=== PATIENT | male | born 1970 | race Caucasian/White ===

== ENCOUNTER 2017-12-26 08:15 | Emergency (ER) | payer OTHER, MEDICARE ==
[2017-12-26] MEDS ORDERED: DEXAMETHASONE SOD PHOSPHATE 10MG/ML 1ML VIAL ONE (09:36)
== END 2017-12-26 10:00 | disposition home or self-care (01) ==
LOC: EDH 08:15
DX: J06.9 Acute upper respiratory infection, unspecified (principal); J30.9 Allergic rhinitis, unspecified; I10 Essential (primary) hypertension
CPT/HCPCS: 71046; 87804 ×2; 96372; 99285; J1100

== ENCOUNTER 2021-11-17 15:30 | Inpatient (IN) | payer OTHER, MEDICARE ==
[~2021-11-17] VITALS: Ht 175.3 cm; Wt 93.9 kg
[2021-11-17 15:54] LABS: BASOPHILS % (AUTO) 0.2 % (0.0-5.0); LYMPHOCYTES % (AUTO) 6.4 % (21.0-51.0); MEAN CORPUSCULAR HEMOGLOBIN 26.9 pg (27.0-33.0); MEAN CORPUSCULAR HGB CONC 34.5 g/dL (32.0-36.0); MEAN CORPUSCULAR VOLUME 78.1 fL (79-99); MONOCYTES % (AUTO) 6.1 % (3.0-13.0); NEUTROPHILS % (AUTO) 86.7 % (40.0-77.0); PLATELET COUNT (AUTO) 259 K/uL (130-400); RED BLOOD CELL COUNT(AUTO) 6.02 MIL/uL (4.50-6.20); RED CELL DISTRIBUTION WIDTH 13.1 % (11.0-15.5); WHITE BLOOD COUNT (AUTO) 20.9 K/uL (4.8-10.8)
[2021-11-17] MEDS ORDERED: PROPOFOL 1000 MG/100 ML 100 ML IV ONE (15:55)
[2021-11-17] MEDS: PROPOFOL 1000 MG/100 ML 100 ML IV SCH ×2 (15:55→23:14)
[2021-11-17] MEDS ORDERED: KETOROLAC 15MG/ML VIAL (15MG/ML) IV ONE (16:00)
[2021-11-17] MEDS ORDERED: PROPOFOL 500 MG/ 50ML VIAL IV PRN (16:00)
[2021-11-17] MEDS ORDERED: CLINDAMYCIN IVPB 900MG/50ML 50 ML IV SCH (16:00)
[2021-11-17] MEDS ORDERED: 0.9%NACL 1000ML 1,000 ML IV SCH ×3 (16:00→16:30)
[2021-11-17 16:01] LABS: CREATININE 0.8 mg/dL (0.5-1.5); POTASSIUM 4.1 mmol/L (3.5-5.1)
[2021-11-17 16:06] LABS: ALBUMIN 3.5 g/dL (3.5-5.0); TOTAL PROTEIN, SERUM 8.3 g/dL (6.0-8.3)
[2021-11-17 16:19] LABS: ABG BASE EXCESS -3.1 mmol/L (-2.0-3.0); ABG HCO3 22.7 mmol/L (21.0-28.0); ABG OXYGEN SATURATION 99.6 % (95.0-99.0); ABG PCO2 44 mmHg (35-48)
[2021-11-17] MEDS ORDERED: IOHEXOL 350 MG/ML 100ML INFUS..BTL IV ONE (18:06)
[2021-11-17] MEDS: ZOSYN 3.375GM +NS 50ML IV SCH (18:30)
[2021-11-17] MEDS ORDERED: FENTANYL 2500MCG+NS 250ML 250 ML IV ONE (20:47)
[2021-11-17] MEDS ORDERED: MIDAZOLAM 100MG-0.9% NS 100ML 100ML BAG IV ONE (22:00)
[2021-11-17 23:05] VITALS: BP 132/85
[2021-11-17 23:16] VITALS: BP 98/70
[2021-11-17 23:31] VITALS: BP 96/63
[2021-11-17 23:46] VITALS: BP 90/55
[2021-11-18] VITALS (36 sets, daily range): BP systolic 86–136; BP diastolic 53–104
[2021-11-18] MEDS: ZOSYN 3.375GM +NS 50ML IV SCH ×3 (03:00→17:35)
[2021-11-18 03:29] LABS: HEMATOCRIT 42.2 % (42-54); MEAN CORPUSCULAR HGB CONC 33.6 g/dL (32.0-36.0); MEAN CORPUSCULAR VOLUME 80.2 fL (79-99); RED BLOOD CELL COUNT(AUTO) 5.26 MIL/uL (4.50-6.20); RED CELL DISTRIBUTION WIDTH 13.2 % (11.0-15.5); WHITE BLOOD COUNT (AUTO) 16.5 K/uL (4.8-10.8)
[2021-11-18 03:48] LABS: ALBUMIN 2.7 g/dL (3.5-5.0); CREATININE 1.5 mg/dL (0.5-1.5); TOTAL PROTEIN, SERUM 6.8 g/dL (6.0-8.3)
[2021-11-18] MEDS: PROPOFOL 1000 MG/100 ML 100 ML IV SCH ×4 (04:52→22:01)
[2021-11-18] MEDS ORDERED: VANCOMYCIN 1G VIAL IVPB SCH (09:00)
[2021-11-18] MEDS ORDERED: ACETAMINOPHEN 500 MG TABLET PO ONE (09:00)
[2021-11-18] MEDS ORDERED: DEXAMETHASONE SOD PHOSPHATE 4 MG/ML 1ML VIAL IVP ONE (09:00)
[2021-11-18] MEDS ORDERED: 0.9% NACL 250ML IV SCH (09:00)
[2021-11-18] MEDS ORDERED: ACETAMINOPHEN 500 MG TABLET PO PRN (09:00)
[2021-11-18] MEDS ORDERED: IBUPROFEN 600 MG TABLET PO PRN (09:00)
[2021-11-18] MEDS ORDERED: ACETAMINOPHEN 650 MG SUPPOSITORY RC PRN (09:00)
[2021-11-18] MEDS ORDERED: VANCOMYCIN PROTOCOL PER PHARMACY IV SCH (09:00)
[2021-11-18] MEDS ORDERED: NOREPINEPHRIN 4MG/NS 250ML 250 ML IV SCH (09:30)
[2021-11-18 09:33] LABS: APPEARANCE,URINE CLOUDY (CLEAR); BILIRUBIN,URINE MODERATE (NEGATIVE); COLOR,URINE YELLOW (YELLOW); GLUCOSE, URINE (UA) NEGATIVE (NEGATIVE); KETONES,URINE NEGATIVE (NEGATIVE); LEUKOCYTE ESTERASE ,URINE NEGATIVE (NEGATIVE); NITRATE,URINE NEGATIVE (NEGATIVE); OCCULT BLOOD,URINE MODERATE (NEGATIVE); PROTEIN,URINE 30 mg/dL (NEGATIVE)
[2021-11-18] MEDS: PANTOPRAZOLE 40 MG/VIAL IVP SCH (09:36)
[2021-11-18] MEDS: LACTATED RINGERS 1000ML 1,000 ML IV SCH ×2 (09:37→19:47)
[2021-11-18] MEDS ORDERED: VANCOMYCIN 1.25 GM/250 ML BAG 250 ML IV SCH (10:00)
[2021-11-18] MEDS: CHLORHEXIDINE GLUCONATE 473 ML MOUTHWASH MM SCH ×3 (10:04→20:24)
[2021-11-18 10:11] LABS: BACTERIA,URINE Few /HPF (None Seen); SQUAMOUS EPITHELIAL CELL,UR Few /HPF (0-2); WBC,URINE 0-1 /HPF (0-1)
[2021-11-18 10:11] LABS: ABG HCO3 28.1 mmol/L (21.0-28.0); ABG OXYGEN SATURATION 97.1 % (95.0-99.0); ABG PCO2 50 mmHg (35-48)
[2021-11-18] MEDS ORDERED: THIAMINE HCL 100 MG/ML 2ML VIAL IVP SCH (12:00)
[2021-11-18] MEDS ORDERED: MIDAZOLAM HCL 50 MG in 0.9%NACL 50ML 50 ML IV SCH (12:00)
[2021-11-18] MEDS: MIDAZOLAM 100MG-0.9% NS 100ML 100 ML IV SCH (12:41)
[2021-11-18] MEDS: M.V.I. IV [ADULT] 10 ML, FOLIC ACID 1 MG, THIAMINE HCL 400 MG in 0.9%NACL 1000ML 1,000 ML IV SCH (12:41)
[2021-11-18] MEDS ORDERED: LACTATED RINGERS 1000ML IV SCH (13:30)
[2021-11-18 13:44] LABS: MAGNESIUM 2.2 mg/dL (1.80-2.40); PHOSPHORUS 4.4 mg/dL (2.5-4.9); POTASSIUM 4.1 mmol/L (3.5-5.1)
[2021-11-18] MEDS: FENTANYL 2500MCG+NS 250ML IV.SOLN IV SCH (17:17)
[2021-11-18] MEDS: VANCOMYCIN 1G/250ML KIT 250 ML IV SCH (17:18)
[2021-11-18] MEDS: DEXAMETHASONE SOD PHOSPHATE 4 MG/ML 1ML VIAL IVP SCH (20:23)
[2021-11-18] MEDS ORDERED: DEXAMETHASONE SOD PHOSPHATE 4 MG/ML 1ML VIAL IVP SCH (21:00)
[2021-11-19] VITALS (28 sets, daily range): BP systolic 101–127; BP diastolic 56–83
[2021-11-19] MEDS: PROPOFOL 1000 MG/100 ML 100 ML IV SCH ×3 (02:17→23:27)
[2021-11-19] MEDS: ZOSYN 3.375GM +NS 50ML IV SCH ×3 (02:19→17:47)
[2021-11-19] MEDS: MIDAZOLAM 100MG-0.9% NS 100ML 100 ML IV SCH ×2 (02:19→15:09)
[2021-11-19] MEDS: CHLORHEXIDINE GLUCONATE 473 ML MOUTHWASH MM SCH ×4 (03:42→20:33)
[2021-11-19 05:07] LABS: BASOPHILS % (AUTO) 0.2 % (0.0-5.0); HEMATOCRIT 39.5 % (42-54); MEAN CORPUSCULAR HEMOGLOBIN 27.2 pg (27.0-33.0); MEAN CORPUSCULAR HGB CONC 33.7 g/dL (32.0-36.0); MEAN CORPUSCULAR VOLUME 80.8 fL (79-99); MONOCYTES % (AUTO) 3.4 % (3.0-13.0); NEUTROPHILS % (AUTO) 88.7 % (40.0-77.0); PLATELET COUNT (AUTO) 240 K/uL (130-400); RED BLOOD CELL COUNT(AUTO) 4.89 MIL/uL (4.50-6.20); RED CELL DISTRIBUTION WIDTH 13.2 % (11.0-15.5); WHITE BLOOD COUNT (AUTO) 12.2 K/uL (4.8-10.8)
[2021-11-19 05:15] LABS: HEMOGLOBIN A1C 5.5 % (4.0-6.0)
[2021-11-19 05:25] LABS: ALBUMIN 2.4 g/dL (3.5-5.0); CREATININE 1.1 mg/dL (0.5-1.5); POTASSIUM 4.7 mmol/L (3.5-5.1); TOTAL PROTEIN, SERUM 6.9 g/dL (6.0-8.3)
[2021-11-19] MEDS: LACTATED RINGERS 1000ML 1,000 ML IV SCH ×2 (05:50→14:37)
[2021-11-19] MEDS: VANCOMYCIN 1G/250ML KIT 250 ML IV SCH ×2 (05:50→18:24)
[2021-11-19] MEDS: PANTOPRAZOLE 40 MG/VIAL IVP SCH (08:23)
[2021-11-19] MEDS: DEXAMETHASONE SOD PHOSPHATE 4 MG/ML 1ML VIAL IVP SCH ×2 (08:23→20:24)
[2021-11-19] MEDS: M.V.I. IV [ADULT] 10 ML, FOLIC ACID 1 MG, THIAMINE HCL 400 MG in 0.9%NACL 1000ML 1,000 ML IV SCH (08:27)
[2021-11-19] MEDS ORDERED: THIAMINE HCL 100 MG/ML 2ML VIAL IVP SCH (09:00)
[2021-11-19] MEDS ORDERED: IOHEXOL-350 50ML VIAL IV ONE (15:25)
[2021-11-19] MEDS ORDERED: LACTOSE REDUCED FOOD NG SCH (17:00)
[2021-11-19] MEDS ORDERED: FIBER NG SCH (17:00)
[2021-11-19] MEDS: FENTANYL 2500MCG+NS 250ML IV.SOLN IV SCH (23:29)
[2021-11-20] VITALS (47 sets, daily range): BP systolic 104–138; BP diastolic 61–96
[2021-11-20] MEDS: LACTATED RINGERS 1000ML 1,000 ML IV SCH (01:30)
[2021-11-20] MEDS: CHLORHEXIDINE GLUCONATE 473 ML MOUTHWASH MM SCH ×4 (01:32→19:44)
[2021-11-20] MEDS: MIDAZOLAM 100MG-0.9% NS 100ML 100 ML IV SCH ×2 (01:34→12:47)
[2021-11-20] MEDS: ZOSYN 3.375GM +NS 50ML IV SCH ×3 (01:34→18:18)
[2021-11-20 03:47] LABS: BASOPHILS % (AUTO) 0.1 % (0.0-5.0); HEMATOCRIT 33.9 % (42-54); LYMPHOCYTES % (AUTO) 8.1 % (21.0-51.0); MEAN CORPUSCULAR HEMOGLOBIN 27.7 pg (27.0-33.0); MEAN CORPUSCULAR HGB CONC 33.6 g/dL (32.0-36.0); MEAN CORPUSCULAR VOLUME 82.5 fL (79-99); MONOCYTES % (AUTO) 4.5 % (3.0-13.0); NEUTROPHILS % (AUTO) 86.8 % (40.0-77.0); PLATELET COUNT (AUTO) 210 K/uL (130-400); RED BLOOD CELL COUNT(AUTO) 4.11 MIL/uL (4.50-6.20); RED CELL DISTRIBUTION WIDTH 13.5 % (11.0-15.5); WHITE BLOOD COUNT (AUTO) 11.1 K/uL (4.8-10.8)
[2021-11-20 04:05] LABS: ALBUMIN 2.1 g/dL (3.5-5.0); CREATININE 0.9 mg/dL (0.5-1.5); POTASSIUM 5.2 mmol/L (3.5-5.1); TOTAL PROTEIN, SERUM 6.2 g/dL (6.0-8.3)
[2021-11-20] MEDS ORDERED: 0.9% NACL 250ML 250 ML ONE ×2 (04:35→18:06)
[2021-11-20] MEDS: PROPOFOL 1000 MG/100 ML 100 ML IV SCH ×4 (04:43→18:58)
[2021-11-20] MEDS: VANCOMYCIN 1G/250ML KIT 250 ML IV SCH ×2 (05:24→18:18)
[2021-11-20] MEDS: PANTOPRAZOLE 40 MG/VIAL IVP SCH (08:13)
[2021-11-20] MEDS: DEXAMETHASONE SOD PHOSPHATE 4 MG/ML 1ML VIAL IVP SCH ×3 (08:13→19:44)
[2021-11-20] MEDS: M.V.I. IV [ADULT] 10 ML, FOLIC ACID 1 MG, THIAMINE HCL 400 MG in 0.9%NACL 1000ML 1,000 ML IV SCH (10:03)
[2021-11-20] MEDS: FENTANYL 2500MCG+NS 250ML IV.SOLN IV SCH (12:48)
[2021-11-20] MEDS ORDERED: ENOXAPARIN SODIUM 40 MG/0.4 ML SYRINGE SQ ONE (13:00)
[2021-11-20] MEDS: CHLORDIAZEPOXIDE HCL 25 MG CAP PO SCH (19:44)
[2021-11-20] MEDS: ARTIFICIAL TEARS 3.5 GM OINTMENT OU SCH (21:00)
[2021-11-21] VITALS (44 sets, daily range): BP systolic 116–184; BP diastolic 69–123
[2021-11-21] MEDS: MIDAZOLAM 100MG-0.9% NS 100ML 100 ML IV SCH ×2 (00:02→10:08)
[2021-11-21] MEDS: METOCLOPRAMIDE 5 MG TABLET PO SCH ×3 (00:28→16:21)
[2021-11-21] MEDS ORDERED: LACTATED RINGERS 1000ML 1,000 ML IV SCH (01:30)
[2021-11-21] MEDS: ZOSYN 3.375GM +NS 50ML IV SCH ×3 (02:33→18:16)
[2021-11-21] MEDS: PROPOFOL 1000 MG/100 ML 100 ML IV SCH ×2 (02:37→08:25)
[2021-11-21] MEDS: CHLORHEXIDINE GLUCONATE 473 ML MOUTHWASH MM SCH ×4 (02:44→20:36)
[2021-11-21] MEDS: DEXAMETHASONE SOD PHOSPHATE 4 MG/ML 1ML VIAL IVP SCH ×4 (02:45→20:59)
[2021-11-21] MEDS: FENTANYL 2500MCG+NS 250ML IV.SOLN IV SCH ×2 (03:26→17:16)
[2021-11-21 03:46] LABS: HEMATOCRIT 36.5 % (42-54); MEAN CORPUSCULAR HEMOGLOBIN 27.3 pg (27.0-33.0); MEAN CORPUSCULAR HGB CONC 32.6 g/dL (32.0-36.0); MEAN CORPUSCULAR VOLUME 83.7 fL (79-99); MONOCYTES % (AUTO) 4.9 % (3.0-13.0); PLATELET COUNT (AUTO) 228 K/uL (130-400); RED BLOOD CELL COUNT(AUTO) 4.36 MIL/uL (4.50-6.20); RED CELL DISTRIBUTION WIDTH 13.6 % (11.0-15.5); WHITE BLOOD COUNT (AUTO) 6.2 K/uL (4.8-10.8)
[2021-11-21 04:03] LABS: ALBUMIN 2.1 g/dL (3.5-5.0); POTASSIUM 4.3 mmol/L (3.5-5.1); TOTAL PROTEIN, SERUM 6.3 g/dL (6.0-8.3)
[2021-11-21 04:18] LABS: B-TYPE NATRIURETIC PEPTIDE 885 pg/mL (0-100)
[2021-11-21] MEDS ORDERED: 0.9% NACL 250ML 250 ML ONE (05:22)
[2021-11-21] MEDS: VANCOMYCIN 1G/250ML KIT 250 ML IV SCH ×2 (05:26→17:14)
[2021-11-21] MEDS: ENOXAPARIN SODIUM 40 MG/0.4 ML SYRINGE SQ SCH (08:31)
[2021-11-21] MEDS: PANTOPRAZOLE 40 MG/VIAL IVP SCH (08:31)
[2021-11-21] MEDS: CHLORDIAZEPOXIDE HCL 25 MG CAP PO SCH ×2 (08:45→20:36)
[2021-11-21] MEDS: M.V.I. IV [ADULT] 10 ML, FOLIC ACID 1 MG, THIAMINE HCL 400 MG in 0.9%NACL 1000ML 1,000 ML IV SCH (08:58)
[2021-11-21] MEDS: DEXMEDETOMIDINE 400MCG/NS100ML IV SCH ×3 (09:56→20:35)
[2021-11-21] MEDS: CLONIDINE HCL 0.1 MG TABLET PO PRN (13:01)
[2021-11-21 14:45] LABS: ABG HCO3 28.6 mmol/L (21.0-28.0); ABG OXYGEN SATURATION 91.9 % (95.0-99.0); ABG PCO2 53 mmHg (35-48)
[2021-11-21] MEDS ORDERED: FUROSEMIDE 40MG VIAL IV ONE (15:30)
[2021-11-21] MEDS ORDERED: PROPOFOL 1000 MG/100 ML IV PRN (15:30)
[2021-11-21] MEDS ORDERED: LABETALOL 20MG VIAL IV PRN (15:30)
[2021-11-21] MEDS: PROPOFOL 1000 MG/100 ML 100 ML IV PRN ×2 (16:23→21:37)
[2021-11-21] MEDS: CLONIDINE 0.1 MG/ 24 HR PATCH TD SCH (17:06)
[2021-11-21] MEDS: IPRATROPIUM/ALBUTEROL SULFATE 3 ML SOLUTION IH SCH ×2 (18:05→23:18)
[2021-11-21] MEDS ORDERED: ARTIFICAL TEARS SOL 15 ML ONE (20:42)
[2021-11-21] MEDS: ARTIFICIAL TEARS 3.5 GM OINTMENT OU SCH (20:59)
[2021-11-22] VITALS (44 sets, daily range): BP systolic 111–191; BP diastolic 47–132
[2021-11-22] MEDS: DEXMEDETOMIDINE 400MCG/NS100ML IV SCH ×7 (00:46→23:04)
[2021-11-22] MEDS: PROPOFOL 1000 MG/100 ML 100 ML IV PRN ×3 (01:51→09:03)
[2021-11-22] MEDS: ZOSYN 3.375GM +NS 50ML IV SCH ×3 (02:20→18:29)
[2021-11-22] MEDS: CHLORHEXIDINE GLUCONATE 473 ML MOUTHWASH MM SCH ×4 (02:21→20:45)
[2021-11-22] MEDS ORDERED: LABETALOL 20MG VIAL IV PRN ×2 (03:30→05:30)
[2021-11-22] MEDS: HYDRALAZINE 25MG TABLET PO PRN ×2 (03:37→10:05)
[2021-11-22] MEDS: DEXAMETHASONE SOD PHOSPHATE 4 MG/ML 1ML VIAL IVP SCH ×3 (03:37→16:56)
[2021-11-22 03:48] LABS: BASOPHILS % (AUTO) 0.1 % (0.0-5.0); HEMATOCRIT 42.1 % (42-54); LYMPHOCYTES % (AUTO) 13.9 % (21.0-51.0); MEAN CORPUSCULAR HEMOGLOBIN 27.1 pg (27.0-33.0); MEAN CORPUSCULAR HGB CONC 32.8 g/dL (32.0-36.0); MEAN CORPUSCULAR VOLUME 82.5 fL (79-99); MONOCYTES % (AUTO) 7.5 % (3.0-13.0); NEUTROPHILS % (AUTO) 77.5 % (40.0-77.0); PLATELET COUNT (AUTO) 245 K/uL (130-400); RED CELL DISTRIBUTION WIDTH 13.2 % (11.0-15.5); WHITE BLOOD COUNT (AUTO) 8.3 K/uL (4.8-10.8)
[2021-11-22 03:55] LABS: ALBUMIN 2.5 g/dL (3.5-5.0); POTASSIUM 4.3 mmol/L (3.5-5.1); TOTAL PROTEIN, SERUM 7.1 g/dL (6.0-8.3)
[2021-11-22 04:01] LABS: ABG BASE EXCESS 3.5 mmol/L (-2.0-3.0); ABG HCO3 30.2 mmol/L (21.0-28.0); ABG OXYGEN SATURATION 93.9 % (95.0-99.0); ABG PCO2 54 mmHg (35-48)
[2021-11-22] MEDS ORDERED: LACTATED RINGERS 1000ML 1,000 ML IV ONE (04:37)
[2021-11-22 04:38] LABS: B-TYPE NATRIURETIC PEPTIDE 1570 pg/mL (0-100)
[2021-11-22] MEDS: VANCOMYCIN 1G/250ML KIT 250 ML IV SCH ×2 (04:42→17:38)
[2021-11-22] MEDS: HYDROMORPHONE 1 MG INJ IVP PRN ×2 (05:20→19:23)
[2021-11-22] MEDS: CLONIDINE HCL 0.1 MG TABLET PO PRN (05:20)
[2021-11-22] MEDS: FENTANYL 2500MCG+NS 250ML IV.SOLN IV SCH (05:33)
[2021-11-22] MEDS: IPRATROPIUM/ALBUTEROL SULFATE 3 ML SOLUTION IH SCH ×3 (06:25→19:02)
[2021-11-22] MEDS: METOCLOPRAMIDE 5 MG TABLET PO SCH ×2 (06:27→16:30)
[2021-11-22] MEDS ORDERED: MIDAZOLAM 100MG-0.9% NS 100ML 100ML BAG IV ONE (07:30)
[2021-11-22] MEDS ORDERED: MIDAZOLAM 100MG-0.9% NS 100ML 100 ML IV SCH (08:00)
[2021-11-22] MEDS: PANTOPRAZOLE 40 MG/VIAL IVP SCH (10:05)
[2021-11-22] MEDS: ENOXAPARIN SODIUM 40 MG/0.4 ML SYRINGE SQ SCH (10:05)
[2021-11-22] MEDS: CHLORDIAZEPOXIDE HCL 25 MG CAP PO SCH ×2 (10:05→20:51)
[2021-11-22] MEDS ORDERED: NICARDIPINE 25MG INJ 50 MG in 0.9% NACL 250ML 230 ML IV SCH (11:30)
[2021-11-22] MEDS ORDERED: ZIPRASIDONE MESYLATE 20 MG/VIAL IM ONE (11:54)
[2021-11-22] MEDS ORDERED: DIAZEPAM 5 MG/ML 2 ML SYG IVP ONE ×3 (12:00→18:00)
[2021-11-22] MEDS ORDERED: DiphenhydrAMINE HCL 50 MG/ML VIAL IV ONE ×2 (12:30)
[2021-11-22] MEDS: M.V.I. IV [ADULT] 10 ML, FOLIC ACID 1 MG, THIAMINE HCL 400 MG in 0.9%NACL 1000ML 1,000 ML IV SCH (13:36)
[2021-11-22] MEDS: FUROSEMIDE 20MG VIAL IV SCH ×2 (13:37→23:09)
[2021-11-22] MEDS: NICARDIPINE 25MG INJ 50 MG in 0.9% NACL 250ML 230 ML IV SCH ×2 (14:16→20:22)
[2021-11-22 15:54] LABS: ABG BASE EXCESS 8.6 mmol/L (-2.0-3.0); ABG HCO3 33.7 mmol/L (21.0-28.0); ABG OXYGEN SATURATION 92.8 % (95.0-99.0); ABG PCO2 48 mmHg (35-48)
[2021-11-22] MEDS: CLONIDINE 0.1 MG/ 24 HR PATCH TD SCH (17:04)
[2021-11-22] MEDS: DIAZEPAM 5 MG/ML 2 ML SYG IVP SCH (17:05)
[2021-11-22] MEDS: ZIPRASIDONE MESYLATE 20 MG/VIAL IM PRN (17:05)
[2021-11-22] MEDS ORDERED: LORAZEPAM 2 MG/ML 1 ML VIAL IVP STA (19:35)
[2021-11-22] MEDS ORDERED: HALOPERIDOL INJ 5 MG/ML VIAL ONE (19:40)
[2021-11-22] MEDS ORDERED: DiphenhydrAMINE HCL 50 MG/ML VIAL ONE (19:40)
[2021-11-22] MEDS ORDERED: LORAZEPAM 2 MG/ML 1 ML VIAL ONE (19:41)
[2021-11-22] MEDS ORDERED: DiphenhydrAMINE HCL 50 MG/ML VIAL IM ONE (20:00)
[2021-11-22] MEDS ORDERED: HALOPERIDOL INJ 5 MG/ML VIAL IM ONE (20:00)
[2021-11-22] MEDS: ARTIFICIAL TEARS 3.5 GM OINTMENT OU SCH (20:52)
[2021-11-23] VITALS (48 sets, daily range): BP systolic 104–166; BP diastolic 69–102
[2021-11-23] MEDS: DIAZEPAM 5 MG/ML 2 ML SYG IVP SCH ×5 (00:02→23:47)
[2021-11-23] MEDS: DEXMEDETOMIDINE 400MCG/NS100ML IV SCH ×7 (01:25→22:07)
[2021-11-23] MEDS: ZOSYN 3.375GM +NS 50ML IV SCH ×3 (01:55→18:09)
[2021-11-23] MEDS: CHLORHEXIDINE GLUCONATE 473 ML MOUTHWASH MM SCH ×4 (02:26→22:08)
[2021-11-23] MEDS: DEXAMETHASONE SOD PHOSPHATE 4 MG/ML 1ML VIAL IVP SCH ×2 (03:52→15:57)
[2021-11-23] MEDS: ZIPRASIDONE MESYLATE 20 MG/VIAL IM PRN ×3 (03:53→22:42)
[2021-11-23 04:15] LABS: ABG BASE EXCESS 7.3 mmol/L (-2.0-3.0); ABG HCO3 32.4 mmol/L (21.0-28.0); ABG OXYGEN SATURATION 95.6 % (95.0-99.0); ABG PCO2 47 mmHg (35-48)
[2021-11-23 04:37] LABS: HEMATOCRIT 42.5 % (42-54); MEAN CORPUSCULAR HEMOGLOBIN 26.8 pg (27.0-33.0); MEAN CORPUSCULAR HGB CONC 33.6 g/dL (32.0-36.0); MEAN CORPUSCULAR VOLUME 79.7 fL (79-99); RED BLOOD CELL COUNT(AUTO) 5.33 MIL/uL (4.50-6.20); RED CELL DISTRIBUTION WIDTH 12.6 % (11.0-15.5)
[2021-11-23] MEDS: NICARDIPINE 25MG INJ 50 MG in 0.9% NACL 250ML 230 ML IV SCH (04:39)
[2021-11-23 05:03] LABS: ALBUMIN 2.8 g/dL (3.5-5.0); CREATININE 0.9 mg/dL (0.5-1.5); MAGNESIUM 1.8 mg/dL (1.80-2.40); PHOSPHORUS 2.8 mg/dL (2.5-4.9); POTASSIUM 3.2 mmol/L (3.5-5.1); TOTAL PROTEIN, SERUM 7.4 g/dL (6.0-8.3)
[2021-11-23] MEDS: VANCOMYCIN 1G/250ML KIT 250 ML IV SCH ×2 (05:29→17:26)
[2021-11-23] MEDS: IPRATROPIUM/ALBUTEROL SULFATE 3 ML SOLUTION IH SCH ×3 (06:33→19:04)
[2021-11-23] MEDS ORDERED: MAGNESIUM 2GM PREMIX 50ML 50 ML IV PRN (07:00)
[2021-11-23] MEDS ORDERED: LIDOCAINE HCL-MPF 1% 2ML VIAL IV PRN ×2 (07:00)
[2021-11-23] MEDS: METOCLOPRAMIDE 5 MG TABLET PO SCH ×2 (07:30→16:30)
[2021-11-23] MEDS: POTASSIUM CHLORIDE 20MEQ/100ML 100 ML IV PRN ×2 (08:04→11:57)
[2021-11-23] MEDS: ENOXAPARIN SODIUM 40 MG/0.4 ML SYRINGE SQ SCH (08:08)
[2021-11-23] MEDS: PANTOPRAZOLE 40 MG/VIAL IVP SCH (08:08)
[2021-11-23] MEDS ORDERED: DiphenhydrAMINE HCL 50 MG/ML VIAL IV PRN (10:30)
[2021-11-23] MEDS: FUROSEMIDE 20MG VIAL IV SCH ×2 (11:57→23:46)
[2021-11-23] MEDS: NIFEDIPINE 10 MG CAP PO SCH ×3 (14:00→21:00)
[2021-11-23] MEDS: HYDRALAZINE 25MG TABLET PO SCH ×3 (14:00→21:00)
[2021-11-23] MEDS: HALOPERIDOL INJ 5 MG/ML VIAL IV PRN (15:36)
[2021-11-23] MEDS ORDERED: LOSA100T58 PO (16:06)
[2021-11-23] MEDS ORDERED: ALPR0.5T8 PO (16:06)
[2021-11-23] MEDS ORDERED: HYDR-4068 PO (16:06)
[2021-11-23] MEDS ORDERED: NAPR-1023 PO (16:06)
[2021-11-23] MEDS ORDERED: PROP20TA7 PO (16:06)
[2021-11-23] MEDS ORDERED: ADDE10 PO (16:06)
[2021-11-23] MEDS ORDERED: METHI5 PO (16:06)
[2021-11-23] MEDS: ARTIFICIAL TEARS 3.5 GM OINTMENT OU SCH (21:00)
[2021-11-23] MEDS: BALSAM PERU/CASTOR OIL 60 GM TUBE TP SCH (22:08)
[2021-11-24] VITALS (44 sets, daily range): BP systolic 90–162; BP diastolic 49–115
[2021-11-24] MEDS: DEXMEDETOMIDINE 400MCG/NS100ML IV SCH ×4 (00:56→15:46)
[2021-11-24] MEDS: HALOPERIDOL INJ 5 MG/ML VIAL IV PRN ×2 (03:37→23:17)
[2021-11-24] MEDS: DEXAMETHASONE SOD PHOSPHATE 4 MG/ML 1ML VIAL IVP SCH ×2 (03:37→15:29)
[2021-11-24] MEDS: ZOSYN 3.375GM +NS 50ML IV SCH ×3 (03:39→17:35)
[2021-11-24] MEDS: CHLORHEXIDINE GLUCONATE 473 ML MOUTHWASH MM SCH ×4 (03:39→20:00)
[2021-11-24 04:08] LABS: BASOPHILS % (AUTO) 0.1 % (0.0-5.0); EOSINOPHILS % (AUTO) 0.1 % (0.0-8.0); HEMATOCRIT 45.7 % (42-54); LYMPHOCYTES % (AUTO) 13.2 % (21.0-51.0); MEAN CORPUSCULAR HEMOGLOBIN 26.7 pg (27.0-33.0); MEAN CORPUSCULAR HGB CONC 32.8 g/dL (32.0-36.0); MEAN CORPUSCULAR VOLUME 81.3 fL (79-99); MONOCYTES % (AUTO) 5.9 % (3.0-13.0); PLATELET COUNT (AUTO) 267 K/uL (130-400); RED BLOOD CELL COUNT(AUTO) 5.62 MIL/uL (4.50-6.20); WHITE BLOOD COUNT (AUTO) 14.5 K/uL (4.8-10.8)
[2021-11-24 04:29] LABS: ALBUMIN 2.9 g/dL (3.5-5.0); CREATININE 0.9 mg/dL (0.5-1.5); MAGNESIUM 2.1 mg/dL (1.80-2.40); POTASSIUM 3.6 mmol/L (3.5-5.1); TOTAL PROTEIN, SERUM 7.6 g/dL (6.0-8.3)
[2021-11-24] MEDS ORDERED: 0.9% NACL 250ML 250 ML ONE (04:45)
[2021-11-24] MEDS: VANCOMYCIN 1G/250ML KIT 250 ML IV SCH (04:56)
[2021-11-24] MEDS: POTASSIUM CHLORIDE 10MEQ/100ML 100 ML IV PRN (04:57)
[2021-11-24] MEDS: DIAZEPAM 5 MG/ML 2 ML SYG IVP SCH ×3 (05:37→19:43)
[2021-11-24] MEDS: IPRATROPIUM/ALBUTEROL SULFATE 3 ML SOLUTION IH SCH ×4 (06:48→23:46)
[2021-11-24] MEDS: PANTOPRAZOLE 40 MG/VIAL IVP SCH (07:56)
[2021-11-24] MEDS: ENOXAPARIN SODIUM 40 MG/0.4 ML SYRINGE SQ SCH (07:57)
[2021-11-24] MEDS: METOCLOPRAMIDE 5 MG TABLET PO SCH ×2 (07:57→15:53)
[2021-11-24] MEDS: NIFEDIPINE 10 MG CAP PO SCH ×3 (07:58→20:02)
[2021-11-24] MEDS: BALSAM PERU/CASTOR OIL 60 GM TUBE TP SCH ×2 (07:58→20:02)
[2021-11-24] MEDS: HYDRALAZINE 25MG TABLET PO SCH ×3 (07:58→20:02)
[2021-11-24] MEDS: FUROSEMIDE 20MG VIAL IV SCH (10:00)
[2021-11-24] MEDS: VANCOMYCIN 1.25 GM/250 ML BAG 250 ML IV SCH (17:35)
[2021-11-24] MEDS: ARTIFICIAL TEARS 3.5 GM OINTMENT OU SCH (20:07)
[2021-11-24] MEDS ORDERED: HALOPERIDOL INJ 5 MG/ML VIAL IM SCH (23:00)
[2021-11-25] VITALS (27 sets, daily range): BP systolic 99–211; BP diastolic 40–111
[2021-11-25] MEDS: DIAZEPAM 5 MG/ML 2 ML SYG IVP SCH ×4 (00:48→18:43)
[2021-11-25] MEDS: DEXMEDETOMIDINE 400MCG/NS100ML IV SCH (00:48)
[2021-11-25] MEDS: CHLORHEXIDINE GLUCONATE 473 ML MOUTHWASH MM SCH ×3 (02:00→14:00)
[2021-11-25] MEDS: ZOSYN 3.375GM +NS 50ML IV SCH ×3 (02:21→20:52)
[2021-11-25 03:57] LABS: BASOPHILS % (AUTO) 0.1 % (0.0-5.0); EOSINOPHILS % (AUTO) 0.3 % (0.0-8.0); HEMATOCRIT 43.2 % (42-54); LYMPHOCYTES % (AUTO) 14.5 % (21.0-51.0); MEAN CORPUSCULAR HEMOGLOBIN 26.7 pg (27.0-33.0); MEAN CORPUSCULAR HGB CONC 33.8 g/dL (32.0-36.0); MEAN CORPUSCULAR VOLUME 79.1 fL (79-99); MONOCYTES % (AUTO) 5.9 % (3.0-13.0); NEUTROPHILS % (AUTO) 78.2 % (40.0-77.0); PLATELET COUNT (AUTO) 275 K/uL (130-400); RED BLOOD CELL COUNT(AUTO) 5.46 MIL/uL (4.50-6.20); WHITE BLOOD COUNT (AUTO) 14.6 K/uL (4.8-10.8)
[2021-11-25] MEDS: DEXAMETHASONE SOD PHOSPHATE 4 MG/ML 1ML VIAL IVP SCH ×2 (04:47→16:12)
[2021-11-25 04:56] LABS: ALBUMIN 2.7 g/dL (3.5-5.0); CREATININE 0.8 mg/dL (0.5-1.5); POTASSIUM 3.2 mmol/L (3.5-5.1); TOTAL PROTEIN, SERUM 6.9 g/dL (6.0-8.3)
[2021-11-25] MEDS: POTASSIUM CHLORIDE 10MEQ/100ML 100 ML IV PRN ×2 (05:35→06:37)
[2021-11-25] MEDS: VANCOMYCIN 1.25 GM/250 ML BAG 250 ML IV SCH ×2 (05:36→17:02)
[2021-11-25] MEDS: METOCLOPRAMIDE 5 MG TABLET PO SCH ×2 (05:37→16:12)
[2021-11-25] MEDS: CLONIDINE HCL 0.1 MG TABLET PO PRN (05:40)
[2021-11-25] MEDS: IPRATROPIUM/ALBUTEROL SULFATE 3 ML SOLUTION IH SCH ×4 (06:42→23:14)
[2021-11-25] MEDS: ZIPRASIDONE MESYLATE 20 MG/VIAL IM PRN ×2 (07:20→13:50)
[2021-11-25] MEDS: HALOPERIDOL INJ 5 MG/ML VIAL IV PRN ×2 (07:20→12:07)
[2021-11-25] MEDS ORDERED: HYDROXYZINE 25 MG TABLET PO PRN (07:30)
[2021-11-25] MEDS: NIFEDIPINE 10 MG CAP PO SCH ×3 (08:18→20:53)
[2021-11-25] MEDS: HYDRALAZINE 25MG TABLET PO SCH ×3 (08:18→20:53)
[2021-11-25] MEDS: ENOXAPARIN SODIUM 40 MG/0.4 ML SYRINGE SQ SCH (08:19)
[2021-11-25] MEDS: BALSAM PERU/CASTOR OIL 60 GM TUBE TP SCH ×2 (08:43→20:55)
[2021-11-25] MEDS: PANTOPRAZOLE 40 MG/VIAL IVP SCH (09:07)
[2021-11-25] MEDS: FUROSEMIDE 20MG VIAL IV SCH (10:00)
[2021-11-25] MEDS: HYDROXYZINE 25 MG TABLET PO PRN (10:16)
[2021-11-25] MEDS ORDERED: COMPOUND IV REFRIGERATED 1 EACH MISC ONE (16:42)
[2021-11-25] MEDS: ARTIFICIAL TEARS 3.5 GM OINTMENT OU SCH (20:55)
[2021-11-26] VITALS: BP 124/97
[2021-11-26] MEDS: DIAZEPAM 5 MG/ML 2 ML SYG IVP SCH ×3 (00:36→06:10)
[2021-11-26 02:00] VITALS: BP 135/96
[2021-11-26 04:00] VITALS: BP 164/117
[2021-11-26] MEDS: DEXAMETHASONE SOD PHOSPHATE 4 MG/ML 1ML VIAL IVP SCH (04:42)
[2021-11-26] MEDS: ZOSYN 3.375GM +NS 50ML IV SCH (04:42)
[2021-11-26] MEDS ORDERED: KCL 20 MEQ ERTAB PO PRN (05:00)
[2021-11-26] MEDS ORDERED: POTASSIUM CHLORIDE 10% ELIXIR 20 MEQ/15 ML UDCUP PO PRN (05:00)
[2021-11-26 05:11] LABS: BASOPHILS % (AUTO) 0.2 % (0.0-5.0); HEMATOCRIT 42.1 % (42-54); MEAN CORPUSCULAR VOLUME 79.6 fL (79-99); MONOCYTES % (AUTO) 4.9 % (3.0-13.0); NEUTROPHILS % (AUTO) 76.6 % (40.0-77.0); PLATELET COUNT (AUTO) 289 K/uL (130-400); RED BLOOD CELL COUNT(AUTO) 5.29 MIL/uL (4.50-6.20); RED CELL DISTRIBUTION WIDTH 13.2 % (11.0-15.5); WHITE BLOOD COUNT (AUTO) 14.4 K/uL (4.8-10.8)
[2021-11-26 05:28] LABS: ALBUMIN 2.7 g/dL (3.5-5.0); CREATININE 0.8 mg/dL (0.5-1.5); POTASSIUM 3.9 mmol/L (3.5-5.1); TOTAL PROTEIN, SERUM 6.8 g/dL (6.0-8.3)
[2021-11-26] MEDS: VANCOMYCIN 1.25 GM/250 ML BAG 250 ML IV SCH (06:11)
[2021-11-26] MEDS: METOCLOPRAMIDE 5 MG TABLET PO SCH (06:16)
[2021-11-26] MEDS: IPRATROPIUM/ALBUTEROL SULFATE 3 ML SOLUTION IH SCH (06:44)
[2021-11-26] MEDS: PANTOPRAZOLE 40 MG/VIAL IVP SCH (07:50)
[2021-11-26] MEDS: HYDRALAZINE 25MG TABLET PO SCH (07:50)
[2021-11-26] MEDS: NIFEDIPINE 10 MG CAP PO SCH (07:50)
[2021-11-26] MEDS: HYDROXYZINE 25 MG TABLET PO PRN (07:51)
[2021-11-26] MEDS: ENOXAPARIN SODIUM 40 MG/0.4 ML SYRINGE SQ SCH (07:51)
[2021-11-26] MEDS: BALSAM PERU/CASTOR OIL 60 GM TUBE TP SCH (07:54)
[2021-11-26 08:01] VITALS: BP 166/116
[2021-11-26 09:30] VITALS: BP 144/84
[2021-11-26] MEDS ORDERED: VANCOMYCIN 1.5 GM/250 ML BAG 250 ML IV SCH (18:00)
== END 2021-11-26 10:05 | disposition left against medical advice (07) | DRG 870 ==
LOC: EDH 15:30 → EDHIP 18:27 → 2CH 22:41
PROVIDERS: ADMIT Internal Medicine; ATTEND Internal Medicine
PROC: 5A1955Z Respiratory Ventilation, Greater than 96 Consecutive Hours (ICD-10-PCS; principal; 2021-11-17)
PROC: 0BH17EZ Insertion of Endotracheal Airway into Trachea, Via Natural or Artificial Opening (ICD-10-PCS; 2021-11-17)
DX: A41.9 Sepsis, unspecified organism (principal); R65.21 Severe sepsis with septic shock; J18.9 Pneumonia, unspecified organism; G93.41 Metabolic encephalopathy; I50.33 Acute on chronic diastolic (congestive) heart failure; J96.21 Acute and chronic respiratory failure with hypoxia; J96.22 Acute and chronic respiratory failure with hypercapnia; N17.9 Acute kidney failure, unspecified; E87.1 Hypo-osmolality and hyponatremia; I16.1 Hypertensive emergency; J39.0 Retropharyngeal and parapharyngeal abscess; E11.9 Type 2 diabetes mellitus without complications; F90.9 Attention-deficit hyperactivity disorder, unspecified type; I11.0 Hypertensive heart disease with heart failure; L89.152 Pressure ulcer of sacral region, stage 2; F41.9 Anxiety disorder, unspecified; F31.9 Bipolar disorder, unspecified; Z20.822 Contact with and (suspected) exposure to COVID-19
CPT/HCPCS: 31500; 36415; 36600; 70450; 70491; 71045; 80053; 80202; 81001; 82330; 82435; 82550; 82803; 82947; 82948; 83036; 83605; 83735; 83880; 84100; 84132; 84145; 84295; 84443; 84484; 85018; 85025; 85027; 86359; 86361; 87040; 87071; 87077; 87088; 87186; 87205; 87536; 87635; 92610; 93005; 93306; 94002; 94003; 94640; 94664; 99291; C9113; C9803; G0378; J1100; J1170; J1200; J1630; J1650; J1885; J1940; J2060; J2543; J2704; J3010; J3360; J3370; J3411; J3475; J3480; J3486; J3490; J7030; J7050; J7120; Q9967